=== PATIENT | female | born 1990 | race Two or more races ===

== ENCOUNTER 2016-10-01 06:11 | Emergency (ER) | payer SELFPAY ==
[~2016-10-01] VITALS: Ht 152.4 cm; Wt 90.7 kg
[2016-10-01 06:15] VITALS: BP 137/97
--- NOTE | 2016-10-01 06:43 | PHYS DOC ---
Past Medical History Past Medical History: Diabetes-Type II Additional Past Medical Histor: Gestational Diabetes. Past Surgical History: Additional Past Surgical Histo: x2 Alcohol Use: Rarely Drug Use: None Adult General Chief Complaint Chief Complaint: MULTIPLE COMPLAINTS HPI HPI Patient is a 26 year old female who presents with nasal congestion and nonproductive cough for 3 weeks. She states she is just sick and tired of being sick and complains of a dry hacking cough that won't allow her to sleep at night. She also has intermittent sinus pressure that is causing her to have headaches. She states Tylenol takes care of her pain, however, when the Tylenol wears off, her head pressure returns. She denies any neck stiffness, confusion, fevers or chills. She also complains of mild sore throat and states his heart for her to swallow her [id number] pills that she's been taking. She states she's been eating and drinking fine. Review of Systems Review of Systems Constitutional: Denies fever or chills [] Eyes: Denies change in visual acuity, redness, or eye pain [] HENT: Positive for nasal congestion or sore throat [] Respiratory: Denies shortness of breath, positive for sore throat [] Cardiovascular: No additional information not addressed in HPI [] GI: Denies abdominal pain, nausea, vomiting, bloody stools or diarrhea [] : Denies dysuria or hematuria [] Musculoskeletal: Denies back pain or joint pain [] Integument: Denies rash or skin lesions [] Neurologic: Denies headache, focal weakness or sensory changes [] Endocrine: Denies polyuria or polydipsia [] Current Medications Current Medications Current Medications Medications (Trade) Dose Ordered Sig/Bret Start Time Stop Time Status Last Admin Dose Admin Acetaminophen/ Hydrocodone Bitart (Lortab 5/325) 2 tab 1X ONCE 10/01/16 07:15 10/01/16 07:16 DC 10/01/16 06:58 2 TAB Allergies Allergies Allergies Coded Allergies Type Severity Reaction Last Updated Verified No Known Drug Allergies 02/10/14 No Physical Exam Physical Exam Constitutional: Well developed, well nourished, no acute distress, non-toxic appearance. [] HENT: Normocephalic, atraumatic, bilateral external ears normal, oropharynx moist, no oral exudates, nose normal. Left TM is mildly bulging, right TM normal Eyes: PERRLA, EOMI, conjunctiva normal, no discharge. [] Neck: Normal range of motion, no tenderness, supple, no stridor. [] Cardiovascular:Heart rate regular rhythm, no murmur [] Lungs & Thorax: Bilateral breath sounds coarse to auscultation [] Abdomen: Bowel sounds normal, soft, no tenderness, no masses, no pulsatile masses. [] Skin: Warm, dry, no erythema, no rash. [] Back: No tenderness, no CVA tenderness. [] Extremities: No tenderness, no cyanosis, no clubbing, ROM intact, no edema. [] Neurologic: Alert and oriented X 3, normal motor function, normal sensory function, no focal deficits noted. [] Psychologic: Affect normal, judgement normal, mood normal. [] Current Patient Data Vital Signs Vital Signs Date Time Temp Pulse Resp B/P Pulse Ox O2 Delivery O2 Flow Rate FiO2 10/01/16 06:58 99 Room Air 10/01/16 06:15 97.9 83 20 137/97 97.9 Lab Values Laboratory Tests Test 10/01/16 06:37 Influenza Type A Antigen Negative (NEGATIVE) Influenza Type B Antigen Negative (NEGATIVE) Group A Streptococcus Rapid Negative (NEGATIVE) EKG EKG [] Radiology/Procedures Radiology/Procedures [address] [id number] IMAGING REPORT Signed PATIENT: VENANCIO GRAHAM ACCOUNT: [id number] : 1990 LOCATION: ER AGE: 26 SEX: F EXAM STATUS: REG ER ORD. PHYSICIAN: MICHEAL VILLA MD REASON: cough PROCEDURE: CHEST PA & LATERAL Chest, 2 views, 10/01/2016: History: Cough The heart size is normal. No pulmonary infiltrates are seen. There is no evidence of pleural fluid. IMPRESSION: No acute cardiopulmonary abnormality is detected. DICTATED and SIGNED BY: RADHA VILLALPANDO MD DATE: 10/01/16 0706 CC: MICHEAL VILLA MD; NO PCP ~ [address] [id number] IMAGING REPORT Signed PATIENT: VENANCIO GRAHAM ACCOUNT: [id number] : 1990 LOCATION: ER AGE: 26 SEX: F EXAM STATUS: REG ER ORD. PHYSICIAN: MICHEAL VILLA MD REASON: headache, sinus congestion PROCEDURE: HEAD WO CONTRAST CT of the head without contrast, 10/01/2016: History: Headache, sinus congestion Comparison is made to a study from 01/11/2011. The ventricles are within normal limits in size. There is no shift of the midline structures. There is no evidence of acute intracranial hemorrhage or mass effect. Air-fluid levels are present in both maxillary sinuses. There is mucosal thickening in the sphenoid and ethmoid sinuses. IMPRESSION: 1. No acute intracranial abnormality. 2. Paranasal sinusitis. RS Compliance Statement: One or more of the following individualized dose reduction techniques were utilized for this examination: 1. Automated exposure control 2. Adjustment of the mA and/or kV according to patient size 3. Use of iterative reconstruction technique DICTATED and SIGNED BY: RADHA VILLALPANDO MD DATE: 10/01/1635 CC: MICHEAL VILLA MD; NO PCP ~ Impressions: Sinusitis Course & Med Decision Making Course & Med Decision Making Pertinent Labs and Imaging studies reviewed. (See chart for details) CT scan shows sinusitis, influenza and strep throat are both negative. Chest x- ray negative. Patient is being discharged with prednisone 40 mg by mouth daily for 5 days in addition to Augmentin 875 twice a day for 10 days. She is to purchase Claritin and Flonase for nasal congestion and ear pressure. Return precautions given she is agreeable plan being discharge in stable condition. Dragon Disclaimer Dragon Disclaimer This electronic medical record was generated, in whole or in part, using a voice recognition dictation system. Departure Departure Impression: Primary Impression: Sinusitis, acute Disposition: 01 HOME, SELF-CARE Referrals: NO PCP (PCP) Patient Instructions: Sinusitis Additional Instructions: The chest x-ray did not show any signs of pneumonia in your lungs. It did show that he have sinusitis which is likely causing her headache. You can take prednisone as instructed and Augmentin which is an antibiotic. He can take over- the-counter Claritin and Flonase. Flonase is a nasal spray that he should use the next week. It will help take the congestion out of your nose and relieve the pressure in her sinuses. Return the ER for high fevers, confusion, neck stiffness or other concerns. You should follow up with her primary care physician within the next week. Scripts Prednisone 50 Mg [id number] Mg PO DAILY #5 TAB Prov:MICHEAL VILLA MD 10/01/16 Amoxicillin/Potassium Clav (Augmentin 875-125 Tablet)1 Each Tablet1 Tab PO BID # 20 TAB Prov:MICHEAL VILLA MD 10/01/16 MICHEAL VILLA MD Oct 01, 2016 06:43
[2016-10-01 07:02] LABS: OBC FLU VALID
[2016-10-01 07:05] LABS: NEGATIVE OBC STREP NEG; POSITIVE OBC STREP POS
--- NOTE | 2016-10-01 07:09 | RAD ---
Chest, 2 views, 10/01/2016: History: Cough The heart size is normal. No pulmonary infiltrates are seen. There is no evidence of pleural fluid. IMPRESSION: No acute cardiopulmonary abnormality is detected.
[2016-10-01] MEDS ORDERED: HYDROCODONE/APAP 5/325MG TABLET. PO ONE (07:15)
--- NOTE | 2016-10-01 07:39 | RAD ---
CT of the head without contrast, 10/01/2016: History: Headache, sinus congestion Comparison is made to a study from 01/11/2011. The ventricles are within normal limits in size. There is no shift of the midline structures. There is no evidence of acute intracranial hemorrhage or mass effect. Air-fluid levels are present in both maxillary sinuses. There is mucosal thickening in the sphenoid and ethmoid sinuses. IMPRESSION: 1. No acute intracranial abnormality. 2. Paranasal sinusitis. PQRS Compliance Statement: One or more of the following individualized dose reduction techniques were utilized for this examination: 1. Automated exposure control 2. Adjustment of the mA and/or kV according to patient size 3. Use of iterative reconstruction technique
[2016-10-01] MEDS ORDERED: PRED50TA PO (08:00)
[2016-10-01] MEDS ORDERED: AMOX1TAB61 PO (08:00)
[2016-10-01] MEDS ORDERED: ONDANSETRON PF 4 MG/2 ML VIAL. IV ONE ×2 (08:15→10:30)
[2016-10-01] MEDS ORDERED: IV NORMAL SALINE 1000ML BAG 1,000 ML IV ONE (08:15)
[2016-10-01] MEDS ORDERED: CEFTRIAXONE 1GM IVPB FOR OMNI 50 ML IV ONE (08:15)
[2016-10-01 08:35] LABS: BASO % 1 % (0-3); EOS % 2 % (0-3); HEMATOCRIT 38.2 % (36.0-47.0); HEMOGLOBIN 12.5 g/dL (12.0-15.5); LYMPH # 1.6 x10^3/uL (1.0-4.8); LYMPH % 38 % (24-48); MEAN CORPUSCULAR HEMOGLOBIN 28 pg (25-35); MEAN CORPUSCULAR HGB CONC 33 g/dL (31-37); MEAN CORPUSCULAR VOLUME 84 fL (79-100); MONO % 8 % (0-9); NEUT % 52 % (31-73); PLATELET COUNT 218 x10^3/uL (140-400); RED BLOOD COUNT 4.53 x10^6/uL (3.50-5.40); RED CELL DISTRIBUTION WIDTH 13.3 % (11.5-14.5); WHITE BLOOD COUNT 4.3 x10^3/uL (4.0-11.0)
[2016-10-01 08:45] LABS: CALCIUM 8.9 mg/dL (8.5-10.1); CREATININE 0.6 mg/dL (0.6-1.0); POTASSIUM 3.5 mmol/L (3.5-5.1)
[2016-10-01 08:51] LABS: ALBUMIN 3.5 g/dL (3.4-5.0); ALBUMIN/GLOBULIN RATIO 0.7 (1.0-1.7); TOTAL BILIRUBIN 0.3 mg/dL (0.2-1.0); TOTAL PROTEIN 8.4 g/dL (6.4-8.2)
== END 2016-10-01 10:35 | disposition home or self-care (01) ==
LOC: ER 06:11
DX: J01.90 Acute sinusitis, unspecified (principal); E11.9 Type 2 diabetes mellitus without complications
CPT/HCPCS: 36415; 70450; 71020; 80053; 85027; 87070; 87804; 87880; 96365; 96375; 96376; 99285; J0690; J2405; J7030

== ENCOUNTER 2017-12-22 07:26 | Emergency (ER) | payer OTHER ==
[2017-12-22] MEDS ORDERED: LABETALOL HCL 200 MG TABLET (08:30)
[2017-12-22 09:36] LABS: ADD MAN DIFF? NO
[2017-12-22 09:46] LABS: WHITE BLOOD COUNT 7.4 x10^3/uL (4.0-11.0)
[2017-12-22 09:47] LABS: BASO % 1 % (0-3); EOS % 1 % (0-3); HEMOGLOBIN 12.5 g/dL (12.0-15.5); LYMPH # 2.3 x10^3/uL (1.0-4.8); LYMPH % 31 % (24-48); MEAN CORPUSCULAR HEMOGLOBIN 30 pg (25-35); MEAN CORPUSCULAR HGB CONC 35 g/dL (31-37); MEAN CORPUSCULAR VOLUME 86 fL (79-100); MONO # 0.5 x10^3/uL (0.0-1.1); MONO % 7 % (0-9); NEUT # 4.6 x10^3uL (1.8-7.7); NEUT % 62 % (31-73); PLATELET COUNT 257 x10^3/uL (140-400); RED BLOOD COUNT 4.19 x10^6/uL (3.50-5.40); RED CELL DISTRIBUTION WIDTH 14.5 % (11.5-14.5)
[2017-12-22 09:48] LABS: BACTERIA,URINE MODERATE /HPF (0-FEW); BILIRUBIN,URINE NEGATIVE (NEG); CLARITY,URINE CLEAR; COLOR,URINE AMBER; GLUCOSE,URINE 100 mg/dL (NEG); NITRITE,URINE NEGATIVE (NEG); PH,URINE 5.5; PROTEIN,URINE 30 mg/dL (NEG-TRACE); RBC,URINE >40 /HPF (0-2); UROBILINOGEN,URINE 0.2 mg/dL (0.2 mg/dL)
[2017-12-22 09:49] LABS: ALBUMIN 3.6 g/dL (3.4-5.0); ALK PHOS 45 U/L (46-116); ALT (SGPT) 29 U/L (14-59); ANION GAP 7 (6-14); AST (SGOT) 17 U/L (15-37); BLOOD UREA NITROGEN 7 mg/dL (7-20); CALCIUM 8.9 mg/dL (8.5-10.1); CARBON DIOXIDE 26 mmol/L (21-32); CHLORIDE 102 mmol/L (98-107); CREATININE 0.6 mg/dL (0.6-1.0); DIRECT BILIRUBIN 0.1 mg/dL (0.0-0.2); GFR 118.2; GLUCOSE 146 mg/dL (70-99); POTASSIUM 3.7 mmol/L (3.5-5.1); SODIUM 135 mmol/L (136-145); TOTAL BILIRUBIN 0.4 mg/dL (0.2-1.0); TOTAL PROTEIN 8.1 g/dL (6.4-8.2)
[2017-12-22] MEDS: LABETALOL HCL 200 MG TABLET PO (10:00)
[2017-12-22 10:49] LABS: URINE HCG POC HCG POSITIVE (Negative)
[2017-12-23 14:32] LABS: CHLAMYDIA PROBE Negative (Negative); GC PROBE Negative (Negative)
== END 2017-12-22 12:00 | disposition home or self-care (01) ==
LOC: ER 07:26
DX: O20.8 Other hemorrhage in early pregnancy (principal); Z3A.01 Less than 8 weeks gestation of pregnancy
CPT/HCPCS: 36415; 76805; 76817; 80048; 80076; 81001; 81025; 84702; 85025; 86850; 86900; 86901; 87086; 87186; 87491; 87591; 99285-25; Q0111